=== PATIENT | female | born 1950 | race African-American/Black ===

== ENCOUNTER 2019-07-23 15:31 | Emergency (ER) | payer OTHER ==
[~2019-07-23] VITALS: Ht 162.6 cm; Wt 69.0 kg
[2019-07-23] MEDS ORDERED: ONDANSETRON HCL 4MG/2ML INJ IV STA (15:52)
[2019-07-23] MEDS ORDERED: HYDRALAZINE 20MG/ML VIAL IV ONE (16:00)
[2019-07-23] MEDS ORDERED: LABETALOL 5MG/ML SYR 20 MG/4 ML SYRINGE IV ONE (16:00)
[2019-07-23] MEDS ORDERED: ASPIRIN 81MG TABLET PO ONE (16:00)
[2019-07-23] MEDS ORDERED: HEPARIN 5000 UNITS/ML VIAL IV ONE (16:00)
[2019-07-23] MEDS ORDERED: CLOPIDOGREL 75MG TABLET PO ONE (16:15)
[2019-07-23 16:24] LABS: BASOPHILS % 0.4 % (0.0-2.0); HEMATOCRIT. 42.4 % (36.0-48.0); LYMPHOCYTES % 14.5 % (20.0-50.0); MEAN CORPUSCULAR VOLUME 87.8 fL (81.0-99.0); MEAN PLATELET VOLUME 8.6 fl (7.4-10.4); MONOCYTES % 5.3 % (2.0-8.0); NEUTROPHILS % 78.8 % (40.0-76.0); PLATELET 263 x1000/uL (130-400); RED BLOOD CELL COUNT 4.83 mill/uL (4.2-5.4)
[2019-07-23] MEDS ORDERED: MORPHINE SULFATE 4 MG/ML CPJ (NOT FOR IM USE) IV ONE (16:30)
[2019-07-23 16:32] LABS: CHLORIDE 107 mEq/L (98-107)
[2019-07-23 16:41] VITALS: BP 199/130
== END 2019-07-23 16:40 | disposition short-term general hospital (02) ==
LOC: ER 15:31
DX: I21.3 ST elevation (STEMI) myocardial infarction of unspecified site (principal); I16.9 Hypertensive crisis, unspecified; J45.909 Unspecified asthma, uncomplicated; I10 Essential (primary) hypertension; E11.9 Type 2 diabetes mellitus without complications
CPT/HCPCS: 36415; 71045; 80053; 82962; 83880; 84484; 85025; 93005; 96374; 96375; 99285; J0360; J1644; J2270; J2405; J3490